=== PATIENT | female | born 2000 | race Caucasian/White ===

== ENCOUNTER 2019-02-23 21:18 | Emergency (ER) | payer SELFPAY ==
[~2019-02-23] VITALS: Ht 157.5 cm; Wt 92.3 kg
[2019-02-23] MEDS ORDERED: DEPOP150I IM (21:44)
[2019-02-23 21:54] VITALS: BP 131/87
[2019-02-23] MEDS ORDERED: DEXAMETHASONE SOD PHOS 4 MG/ML 5 ML VIAL IM ONE (22:00)
== END 2019-02-23 22:25 | disposition home or self-care (01) ==
LOC: EMS 21:23
DX: L50.9 Urticaria, unspecified (principal); Z88.8 Allergy status to other drugs, medicaments and biological substances
CPT/HCPCS: 96372; 99283; J1100